=== PATIENT | male | born 1955 | race American Indian/Alaskan Native ===

== ENCOUNTER 2017-04-28 14:27 | Outpatient (CLI) | payer MEDICAID ==
--- NOTE | 2017-04-28 15:35 | XRay Report ---
CHEST 2 VIEWS INDICATION: Abnormal EKG. COMPARISON: None similar at this institution. FINDINGS: PA and lateral chest radiographs demonstrate normal cardiomediastinal silhouette. Clear lungs. Intact bones. CONCLUSION: No acute disease in the chest. Thank you for the opportunity to participate in this patient's care.
== END 2017-04-28 14:28 | disposition home or self-care (01) ==
LOC: CARD 14:27
PROVIDERS: ATTEND Nurse Practitioner
DX: R94.31 Abnormal electrocardiogram [ECG] [EKG] (principal)
CPT/HCPCS: 71020

== ENCOUNTER 2019-12-19 07:10 | Emergency (ER) | payer MEDICAID ==
[2019-12-19 07:21] VITALS: BP 129/84
--- NOTE | 2019-12-19 08:03 | XRay Report ---
RIGHT SHOULDER 3 VIEWS INDICATION / CLINICAL INFORMATION: Injury with right shoulder pain. COMPARISON: 04/07/18. FINDINGS: BONES / JOINT(S): There is wide separation of the right acromioclavicular joint with superior displac ement of the distal clavicle. There is mild chronic appearing deformity of the right acromion lateral ly. no acute fracture. SOFT TISSUES: The visualized right lung is clear. ADDITIONAL FINDINGS: None. IMPRESSION: Right AC joint separation is new since 04/07/18. Signer Name: Dov Hancock MD Signed: 12/19/2019 7:59 AM Workstation Name: [id number]
[2019-12-19] MEDS ORDERED: ACETAMINOPHEN 500 MG TAB PO ONE (12:09)
--- NOTE | 2019-12-19 12:09 | Emergency Department Report ---
ED Upper Extremity Inj HPI - General Chief Complaint: Extremity Injury, Upper Stated Complaint: SHOULDER PAIN Time Seen by Provider: 12/19/19 12:08 Source: patient Mode of arrival: Ambulatory Limitations: No Limitations - History of Present Illness Initial Comments: Patient is a 64-year-old male that comes to the ER status post ground-level fall 3 hours prior to arrival complaining of right shoulder pain. He is guarding the right arm. He denies any other injury. He has distal range of motion. He states that he lost his balance and fell on his shoulder. Patient denies LOC. Patient is ambulatory neuro logically intact. Complaint: Injury to:: right -: Sudden, hour(s) Other Extremity Injury: Shoulder: Right Other Injuries: none Handedness: right Place: home Improves With: none Worsens With: none Associated Symptoms: denies other symptoms - Related Data Allergies Allergy/AdvReac Type Severity Reaction Status Date / Time aspirin AdvReac Hives Unverified 04/28/17 14:27 divalproex sodium AdvReac Hives Unverified 04/28/17 14:27 [From [facility]] ED Review of Systems ROS: Stated complaint: SHOULDER PAIN Other details as noted in HPI Comment: All other systems reviewed and negative ED Past Medical Hx - Past Medical History Previous Medical History?: No - Surgical History Past Surgical History?: No - Family History Family history: no significant - Social History Smoking Status: Never Smoker Substance Use Type: None ED Physical Exam - General Limitations: No Limitations General appearance: alert, in no apparent distress - Head Head exam: Present: atraumatic, normocephalic - Eye Eye exam: Present: normal appearance - ENT ENT exam: Present: mucous membranes moist - Neck Neck exam: Present: normal inspection - Respiratory Respiratory exam: Present: normal lung sounds bilaterally. Absent: respiratory distress - Cardiovascular Cardiovascular Exam: Present: regular rate, normal rhythm. Absent: systolic murmur, diastolic murmur, rubs, gallop - GI/Abdominal GI/Abdominal exam: Present: soft, normal bowel sounds - Rectal Rectal exam: Present: deferred - Extremities Exam Extremities exam: Present: normal inspection - Expanded Upper Extremity Exam Right Shoulder Exam: Present: tenderness. Absent: swelling Upper Arm exam: Present: normal inspection Left Shoulder Exam: Present: abrasion - Back Exam Back exam: Present: normal inspection - Neurological Exam Neurological exam: Present: alert, oriented X3 - Psychiatric Psychiatric exam: Present: normal affect, normal mood - Skin Skin exam: Present: warm, dry, intact, normal color. Absent: rash ED Course Vital Signs 12/19/19 07:15 Temperature 97.9 F Pulse Rate 117 H Respiratory 16 Rate Blood Pressure 129/84 O2 Sat by Pulse 98 Oximetry ED Medical Decision Making - Radiology Data Radiology results: report reviewed, image reviewed - Medical Decision Making xray noted with ac separation medicated for pain ice applied sling and swath applied distal radial and ulnar pulse plus 2 with rapid cap refill distal rom intact pt educated on dc poc and follow up with Dr Mcdonald pt verbalizes understanding 1200 HR 100 on provider exam Vital Signs 12/19/19 07:15 Temperature 97.9 F Pulse Rate 117 H Respiratory 16 Rate Blood Pressure 129/84 O2 Sat by Pulse 98 Oximetry - Differential Diagnosis ro dislocation/fx Critical care attestation.: If time is entered above; I have spent that time in minutes in the direct care of this critically ill patient, excluding procedure time. ED Disposition Clinical Impression: AC separation, Fall from ground level, Abrasion Disposition: DC-01 TO HOME OR SELFCARE Is pt being admited?: No Does the pt Need Aspirin: No Condition: Stable Instructions: Acromioclavicular Separation (ED) Additional Instructions: SLING AND SWATH MOTRIN FOR PAIN ICE THE JOINT WHICH WILL HELP DECREASE PAIN FOLLOW UP WITH DR MCDONALD REFERRAL BELOW Referrals: MILI MCDONALD MD [Staff Physician] - 3-5 Days Time of Disposition: 12:13
== END 2019-12-19 12:58 | disposition home or self-care (01) ==
LOC: ED 07:10
DX: S43.101A Unspecified dislocation of right acromioclavicular joint, initial encounter (principal); S40.211A Abrasion of right shoulder, initial encounter; W18.30XA Fall on same level, unspecified, initial encounter; Y93.89 Activity, other specified; Y92.89 Other specified places as the place of occurrence of the external cause; Y99.8 Other external cause status; Z88.6 Allergy status to analgesic agent; Z88.8 Allergy status to other drugs, medicaments and biological substances